=== PATIENT | male | born 1975 ===

== ENCOUNTER → 2018-03-28 | Outpatient (CLI) | payer OTHER ==
[2018-03-28 14:13] LABS: VANC TR 14.2 mcg/mL (10.0-20.0)
== END | disposition home or self-care (01) ==
LOC: SPEC 13:33
DX: L97.529 Non-pressure chronic ulcer of other part of left foot with unspecified severity (principal); Z79.01 Long term (current) use of anticoagulants
CPT/HCPCS: 36415; 80202